=== PATIENT | female | born 2000 | race Caucasian/White ===

== ENCOUNTER 2019-11-03 07:33 | Inpatient (IN) | payer OTHER, SELFPAY ==
[2019-11-03] VITALS (130 sets, daily range): BP systolic 73–130; BP diastolic 20–95; PULSE 59–151; RESP 14; TEMP 36.3–36.9; O2SAT 95–100; BMI 22.4
--- NOTE | 2019-11-03 07:33 | LDADM ---
This patient, Dat Alvarado, was admitted to Labor/Delivery/Recovery 105 on 11/03/19 at 07:33. Plans for labor, pain management and were discussed with patient. Patient/family oriented to hospital policies and general routines including ID bracelet, bed and alarms, visiting hours, pain management, procedures, bathroom and other care routines, personal items, smoking policy, room service/diet and guest tray routines, infant security routines, and visiting hours. Patient/Family are encouraged to report perceived risks to care and to ask questions if they do not understand what they are told or what they should do. See OBIX for further documentation.
[2019-11-03] MEDS: ONDANSETRON INJ 4 MG/2 ML VIAL IV PUSH (07:56)
[2019-11-03] MEDS: LACTATED RINGERS 1,000 ML 125 ML IV CONT ×4 (07:58→16:24)
[2019-11-03] MEDS: OXYTOCIN 30 UNITS/NS 500 ML 30 UNITS/500 ML BAG IV CONT (07:59)
[2019-11-03 08:25] LABS: Basophils Percent Auto 0.3 % (0.2-1.2); Eosinophils Absolute Auto 0.1 K/mm3 (0-0.3); Eosinophils Percent Auto 0.5 % (0-4.4); Hematocrit 39.3 % (37.0-47.0); Hemoglobin 13.3 g/dL (12.0-15.0); Immature Granulocyte Absolute 0.04 K/mm3 (0.00-0.031); Immature Granulocyte Percent A 0.4 % (0-0.5); Lymphocytes Absolute Auto 1.82 K/mm3 (0.9-3.2); Mean Corpuscular HGB Conc 33.8 g/dl (32-36); Mean Corpuscular Hemoglobin 30.4 pg (26-34); Mean Corpuscular Volume 89.7 fl (80-100); Mean Platelet Volume 9.9 fl (7.4-10.4); Monocytes Absolute Auto 0.8 K/mm3 (0.1-0.6); Monocytes Percent Auto 9.1 % (2.6-8.5); Neutrophils Absolute Auto 6.4 K/mm3 (1.3-6.7); Neutrophils Percent Auto 69.7 % (45.5-73.1); Platelet Count Result 225 k/mm3 (150-375); Red Blood Count 4.38 M/mm3 (4.2-5.4); Red Cell Distribution Width 12.6 % (11.5-14.5); White Blood Count 9.1 K/mm3 (4.5-10.0)
--- NOTE | 2019-11-03 14:33 | WPDANESEPPF ---
Anes - Initial Pre Proc Eval Date/Time: 11/03/19 14:33 Surgeon: Stephan Smith MD Pre Op Diagnosis: Induction of Labor Patient Data Age: 19 Gender: F Height: 1.68 m Weight: 63 kg Last Vital Signs Temp 36.6 C 11/03/19 14:03 Pulse 75 11/03/19 14:31 BP 116/81 11/03/19 14:31 Pulse Ox 100 11/03/19 14:29 Allergies Allergy/AdvReac Type Severity Reaction Status Date / Time Sulfa (Sulfonamide Allergy Intermediate Rash, Verified 04/15/18 14:19 Antibiotics) swelling Home Medications Medication Instructions Recorded Confirmed Type sertraline 100 mg PO DAILY 11/03/19 11/03/19 History Laboratory Tests 11/03/19 11/03/19 11/03/19 07:58 07:58 07:58 WBC 9.1 K/mm3 K/mm3 (4.5-10.0) RBC 4.38 M/mm3 M/mm3 (4.2-5.4) Hgb 13.3 g/dL g/dL (12.0-15.0) Hct 39.3 % % (37.0-47.0) MCV 89.7 fl fl (80-100) MCH 30.4 pg pg (26-34) MCHC 33.8 g/dl g/dl (32-36) RDW 12.6 % % (11.5-14.5) Plt Count 225 k/mm3 k/mm3 (150-375) MPV 9.9 fl fl (7.4-10.4) Immature Gran % (Auto) 0.4 % % (0-0.5) Neut % (Auto) 69.7 % % (45.5-73.1) Lymph % (Auto) 20.0 % % (18.3-44.2) [place] % (Auto) 9.1 % H % (2.6-8.5) Eos % (Auto) 0.5 % % (0-4.4) Baso % (Auto) 0.3 % % (0.2-1.2) Lymph # (Auto) 1.82 K/mm3 K/mm3 (0.9-3.2) [place] # (Auto) 0.8 K/mm3 H K/mm3 (0.1-0.6) Eos # (Auto) 0.1 K/mm3 K/mm3 (0-0.3) Baso # (Auto) 0.0 K/mm3 K/mm3 (0.0-0.1) Abs Immat Gran (auto) 0.04 K/mm3 H K/mm3 (0.00-0.031) Absolute Neuts (auto) 6.4 K/mm3 K/mm3 (1.3-6.7) Absolute Nucleated RBC 0.0 K/mm3 K/mm3 (0.0-0.012) Nucleated RBC % 0.0 % % (0.0-0.2) RPR Pending Blood Type O Positive Antibody Screen Negative Patient hx anesthesia problems: none Family hx anesthesia problems: none [facility] Family History Family History (Updated 11/03/19 @ 08:19 by Yoselin Tovar RN) Grandparent Cancer Father Diabetes mellitus Social History Social History Smoking status: Former smoker Tobacco type: cigarettes Smoking end date: 03/01/19 Gender identity (if verbalized by the patient): Female Spiritual care concerns: No Anes - Eval Final PreProcedure Day of Procedure 11/03/19 14:33 Patient weight: normal Heart: regular rate and rhythm Lungs: clear to auscultation and normal air movement Airway: Mallampati scale class II Neurological: alert and oriented Last oral intake: >/= 8 hours ASA classification: II Emergent: no Anesthetic plan: proceed Anesthesia type and monitoring: regional epidural Informed Consent: The patient's anesthetic plan and its attendant risks and benefits were discussed with the patient/family/POA. Questions were solicited and answers provided to the satisfaction of the patient/family/POA.
--- NOTE | 2019-11-03 18:35 | WPDHPUPDATE1 ---
History and Physical Update Update Date/Time: 11/03/19 18:35 History and Physical has been reviewed, including an updated exam of the patient. There are NO changes in the patient's condition. Risks, benefits, and alternatives have been discussed and questions answered. Patient agrees to proceed with procedure.
--- NOTE | 2019-11-03 18:35 | WPDOBADMIT ---
Obstetrics - Admit Note Admission Note: record reviewed. No pertinent additions to the history and/or any subsequent changes in the physical findings that are not consistent with the expected course of the were found. Additions to the history and/or subsequent changes in the physical findings follow. None.
--- NOTE | 2019-11-03 18:35 | PM.OBPRVD ---
OB - Delivery Note Procedure Delivery date: 11/03/19 Route of delivery: Episiotomy description: None Laceration description: None Specimen: Yes (placenta (MSF)) Estimated blood loss (mL): 100 Anesthesia type: Epidural Disposition: floor Narrative: Patient prepped and draped in usual manner for this procedure. Maternal expulsive efforts delivered vertex. Nuchal cord was noted and reduced. Rest of baby was delivered without difficulty. Cord is clamped and cut was passed off the operative field. Placenta delivered spontaneously. Uterus was well contracted. Surgeon logistics solution manager vulva were inspected no lacerations or tears. This point seizure was considered terminated. [place] Baby Weeks of gestation at delivery: 39 Weight (pounds): 7 Weight (ounces): 0 presentation: vertex Placenta delivery description: Spontaneous cord vessel description: 3 Vessels score one minute: 7 score five minutes: 9
[2019-11-03] MEDS: OXYTOCIN 30 UNITS/NS 500 ML 30 UNITS/500 ML BAG 125 UNITS IV CONT (18:56)
[2019-11-03] MEDS: IBUPROFEN 600 MG TABLET PO (20:07)
[2019-11-03] MEDS: BENZOCAINE 20% AER SPR (*SP) 56 GM CAN 1 SPRAY TOPICAL (20:08)
[2019-11-03] MEDS: WITCH HAZEL 40 PADS 1 PAD TOPICAL (20:08)
[2019-11-04 05:37] LABS: Hematocrit 32.4 % (37.0-47.0); Hemoglobin 10.7 g/dL (12.0-15.0)
--- NOTE | 2019-11-04 06:57 | P.DS_ITS ---
OB - DS: Summary OB Procedures : None OB Procedures Intrapartum: Spontaneous Vag Delivery OB Procedures: : None Time Spent with Patient Time attestation: Total time spent providing and/or coordinating discharge services: DS: Data Data Completed and Pending Pending studies at discharge: Pending at discharge 11/03/19 18:28 Surgical [PTH] Routine Labs on day of discharge: Labs from last 24 hours 11/04/19 11/03/19 11/03/19 05:10 07:58 07:58 WBC RBC Hgb 10.7 L Hct 32.4 L MCV MCH MCHC RDW Plt Count MPV Immature Gran % (Auto) Neut % (Auto) Lymph % (Auto) [place] % (Auto) Eos % (Auto) Baso % (Auto) Lymph # (Auto) [place] # (Auto) Eos # (Auto) Baso # (Auto) Abs Immat Gran (auto) Absolute Neuts (auto) Absolute Nucleated RBC Nucleated RBC % RPR Pending Blood Type O Positive Antibody Screen Negative 11/03/19 07:58 WBC 9.1 RBC 4.38 Hgb 13.3 Hct 39.3 MCV 89.7 MCH 30.4 MCHC 33.8 RDW 12.6 Plt Count 225 MPV 9.9 Immature Gran % (Auto) 0.4 Neut % (Auto) 69.7 Lymph % (Auto) 20.0 [place] % (Auto) 9.1 H Eos % (Auto) 0.5 Baso % (Auto) 0.3 Lymph # (Auto) 1.82 [place] # (Auto) 0.8 H Eos # (Auto) 0.1 Baso # (Auto) 0.0 Abs Immat Gran (auto) 0.04 H Absolute Neuts (auto) 6.4 Absolute Nucleated RBC 0.0 Nucleated RBC % 0.0 RPR Blood Type Antibody Screen Discharge Plan Discharge Discharging Clinician: Stephan Smith Patient Disposition: Home, Self-Care Activity: as tolerated Diet: as tolerated Patient Instructions: Antibiotic Form Stand Alone Forms: General Discharge Information Follow-up/Referrals: Stephan Smith MD [Physician] - 3 Weeks Discharge Medications: New hydrocodone-acetaminophen 5-325 mg Tablet 1 tab PO Q3H PRN (Reason: Moderate Pain (4-6)) Qty: 12 RF: 0 ibuprofen 600 mg Tablet 600 mg PO Q6H PRN (Reason: Cramping) Qty: 30 RF: 0 Continued sertraline 100 mg tablet 100 mg PO DAILY RF: 0 Date of admission: 11/03/19 07:33 Primary Care Provider: UNKNOWN,DOCTOR Admitting Provider: Stephan Smith Attending physician on admission: Stephan Smith
[2019-11-04] MEDS: SERTRALINE HCL 50 MG TABLET 100 MG PO (08:54)
[2019-11-04] MEDS: MULTIVIT/MIN/PREN/FOL AC/IRON TABLET 1 TAB PO (08:54)
[2019-11-04] MEDS: IBUPROFEN 600 MG TABLET PO ×2 (08:54→17:20)
[2019-11-04 08:58] VITALS: BP 112/79; PULSE 66; RESP 18; TEMP 36.5
--- NOTE | 2019-11-04 13:58 | WPDANLDPN2 ---
Anes-Prog Note L&D Date/Time: 11/04/19 13:58 Comfortable throughout: labor and delivery Neuraxial method: epidural Epidural/Spinal procedure site: clean & non-tender Neuro status: Neuro function grossly intact. Cardiovascular status: normal Respiratory status: normal Airway patency: baseline Mental status: baseline Post-Op hydration status: normal Vital Signs: Last Vital Signs Temp 97.7 F 11/04/19 08:58 Pulse 66 11/04/19 08:58 Resp 18 11/04/19 08:58 BP 112/79 11/04/19 08:58 Pulse Ox 98 11/03/19 20:35 I/O: Intake & Output 11/03/19 11/04/19 11/04/19 23:59 07:59 15:59 Intake Total 2500 Output Total 150 Balance 2350 Patient feedback: Patient satisfied with anesthetic care.
[2019-11-04] MEDS: DOCUSATE SODIUM 100 MG CAPSULE PO (17:20)
--- NOTE | 2019-11-04 20:10 | PC.NURSE ---
Patient viewed the discharge video Mother & Baby Care, The First Two Weeks . Patient was given the opportunity and encouraged to ask questions. Patient verbalized understanding of information shared and has been given the mother/baby guide for home reference.
[2019-11-06 08:03] LABS: Rapid Plasma Reagin Non-Reactive (NonReactive)
== END 2019-11-04 21:07 | disposition home or self-care (01) | DRG 560 ==
LOC: ANHLDR 07:42 → ANHOB2 20:32
PROVIDERS: Admitting Provider Obstetrics & Gynecology; Visit Provider Obstetrics & Gynecology
DX: O69.81X0 Labor and delivery complicated by cord around neck, without compression, not applicable or unspecified (principal); Z3A.39 39 weeks gestation of pregnancy; Z37.0 Single live birth; Z23 Encounter for immunization; Z87.891 Personal history of nicotine dependence
CPT/HCPCS: 36415; 85014; 85018; 85025; 86592; 86850; 86900; 86901; 88307; A9270; J2405; J2590; J2795; J7120

== ENCOUNTER 2022-02-20 06:03 | Inpatient (IN) | payer OTHER, SELFPAY ==
[2022-02-20] VITALS (148 sets, daily range): BP systolic 85–127; BP diastolic 35–103; PULSE 57–102; RESP 16–18; TEMP 36.2–36.9; O2SAT 97–100; BMI 23.8
--- OUTSIDE RECORDS SUMMARY | 2022-02-20 06:12 | XMS_ITS ---
:2000 Author Care Team Providers Name Role Phone Stephan Smith Primary Care Provider Unavailable Allergies Code Code System Name Reaction Severity Status Onset Sulfa (Sulfonamide Antibiotics) ? ? Active ? Medications Name Status Start Date Stop Date ? ? folic acid 1 mg tablet Completed ? 0 Lice Killing 0.33 %-4 % shampoo Active ? Not available nifedipine ER 30 mg tablet,extended release 24 hr Completed ? 10/31/2019 progesterone micronized 200 mg capsule Completed ? 10/31/2019 sertraline 100 mg tablet Active ? Not gayathri ilable Notes: iron Problems Name Status Onset Date Source ? Unknown 10/25/2019 ? Procedures Notes: dental Results Lab Results None recorded. Past Encounters None recorded. Social History Tobacco Smoking Status Former Smoker Notes: quit age 16 Vaccine List None recorded. Plan of Care Reminders Provider Appointments None recorded. ? ? Lab None recorded. ? ? Referral None recorded. ? ? Procedures None recorded. ? ? Surgeries None recorded. ? ? Imaging None recorded. ? ? Vitals Weight Blood Pressure 138 lbs 104/58 mm[Hg]
--- OUTSIDE RECORDS SUMMARY | 2022-02-20 06:12 | XMS_ITS | Encounter Summary ---
:1999 Author Care Team Providers Name Role Phone Barbara Denise MD Primary Care Provider [phone] Reason for Visit OB visit Assessment and Plan Assessment Note Patient is ___weeks . Discussed plan. 1. Routine care Discussion Note: None recorded.Patient educational handouts: No information available. Plan of Care Reminders Provider Appointments None recorded. ? ? Lab None recorded. ? ? Referral None recorded. ? ? Procedures None recorded. ? ? Surgeries None recorded. ? ? Imaging None recorded. ? ? Medications Name Start Date ? ? bucoyelpza-lvzrjootpeamb-vzghkuwe 50 mg-300 mg-40 mg c apsule ? TAKE 1 CAPSULE BY MOUTH EVERY 4 HOURS calcium carbonate 600 mg-vitamin D3 10 mcg (400 unit) tablet ? TAKE 1 TABLET BY MOUTH DAILY FC2 Female Condom ? levonorgestrel 1.5 mg tablet ? norethindrone (contraceptive) 0.35 mg tablet ? Gummies ? Medications Administered None recorded. Vitals Height Weight BMI Blood Pressure 5 ft 6.25 in 146 lbs 23.4 kg/m2 100/69 mm[Hg] Results Lab Results None recorded. Allergies Code Code System Name Reaction Severity Onset Sulfa (Sulfonamide Antibiotics) Anaphylaxis ? ? Problems Name Status Onset Date Source ? Active 09/01/2021 ? Migraine with Aura Active 11/13/2021 ? Procedures Date Name Performed by ? 01/09/2022 US, Obstetric, Follow-up [place]
--- OUTSIDE RECORDS SUMMARY | 2022-02-20 06:12 | XMS_ITS ---
:1999 Author Care Team Providers Name Role Phone MARCY CUNNINGHAM MD Primary Care Provider [phone] Allergies Code Code System Name Reaction Severity Status Onset Sulfa (Sulfonamide Anaphylaxis ? Active ? Antibiotics) Medications Name Status Start Date Stop Date ? ? amoxicillin 500 mg tablet Completed 04/01/20182021 take 1 tablet by oral route every 8 hours bupropion HCl XL 150 mg 24 hr tablet, extended release Completed ? 12/03/2021 TAKE 1 TABLET BY MOUTH EVERY DAY nywvvxirly-puwpedagxqhqz-vesescen 50 mg-300 mg-40 mg capsule Act devin ? Not available TAKE 1 CAPSULE BY MOUTH EVERY 4 HOURS calcium carbonate 600 mg-vitamin D3 10 mcg (400 unit) tablet Act devin ? Not available TAKE 1 TABLET BY MOUTH DAILY cephalexin 500 mg capsule Completed 12/07/20172021 take 1 capsule by oral route every 12 hours escitalopram 10 mg tablet Completed ? 2021 TAKE 1 TABLET BY MOUTH EVERY DAY escitalopram 20 mg tablet Completed ? 2021 TAKE 1 TABLET BY MOUTH EVERY DAY IN THE MORNING FC2 Female Condom Active ? Not available levonorgestrel 1.5 mg tablet Active ? Not available norethindrone (contraceptive) 0.35 mg tablet Active ? Not available Gummies Active ? Not available Xulane 150 mcg-35 mcg/24 hr transdermal patch Completed ? 09/01/2021 APPLY 1 PATCH TOPICALLY TO THE SKIN EVERY WEEK FOR 21 DAYS Problems Name Status Onset Date Source ? Detection Examination Unknown 11/16/[address] Concept Unknown 11/16/2017 History Screening for Malformation Unknown 11/26/2017 Histo
--- OUTSIDE RECORDS SUMMARY | 2022-02-20 06:12 | XMS_ITS | Encounter Summary ---
:1999 Author Care Team Providers Name Role Phone Barbara Denise MD Primary Care Provider [phone] Reason for Visit None recorded. Assessment and Plan 1. Placenta circumvallata ? US, obstetric, follow-up Discussion Note: None recorded.Patient educational handouts: No information available. Plan of Care Reminders Provider Appointments None recorded. ? ? Lab None recorded. ? ? Referral None recorded. ? ? Procedures None recorded. ? ? Surgeries None recorded. ? ? Imaging US, Obstetric, Follow-up 02/03/2022 Juan M newell Medications Name Start Date ? ? agipptwegl-hexrwkreurztr-ggjmtwnw 50 mg-300 mg-40 mg c apsule ? TAKE 1 CAPSULE BY MOUTH EVERY 4 HOURS calcium carbonate 600 mg-vitamin D3 10 mcg (400 unit) tablet ? TAKE 1 TABLET BY MOUTH DAILY FC2 Female Condom ? levonorgestrel 1.5 mg tablet ? norethindrone (contraceptive) 0.35 mg tablet ? Gummies ? Medications Administered None recorded. Vitals None recorded. Results Lab Results None recorded. Allergies Code Code System Name Reaction Severity Onset Sulfa (Sulfonamide Antibiotics) Anaphylaxis ? ? Problems Name Status Onset Date Source ? Active 09/01/2021 ? Migraine with Aura Active 11/13/2021 ? Procedures Date Name Performed by ? 01/09/2022 US, Obstetric, Follow-up [place] [address] [place] [address] ([address])
--- OUTSIDE RECORDS SUMMARY | 2022-02-20 06:12 | XMS_ITS | Encounter Summary ---
:1999 Author Care Team Providers Name Role Phone Barbara Denise MD Primary Care Provider [phone] Reason for Visit OB visit Assessment and [...] ? Medications Name Start Date ? ? qqiwcyphmc-fnejbkzvirncw-fflcyqkc 50 mg-300 mg-40 mg c apsule ? TAKE 1 CAPSULE BY MOUTH EVERY 4 HOURS calcium carbonate 600 mg-vitamin D3 10 mcg (400 unit) tablet ? TAKE 1 TABLET BY MOUTH DAILY FC2 Female Condom ? levonorgestrel 1.5 mg tablet ? norethindrone (contraceptive) 0.35 mg tablet ? Gummies ? Medications Administered None recorded. Vitals Height Weight BMI Blood Pressure 5 ft 6.25 in 149 lbs 23.9 kg/m2 103/66 mm[Hg] Results Lab Results None recorded. Allergies Code Code System Name Reaction Severity Onset Sulfa (Sulfonamide Antibiotics) Anaphylaxis ? ? Problems Name Status Onset Date Source ? Active 09/01/2021 ? Migraine with Aura Active 11/13/2021 ? Procedures Date Name Performed by ? 01/09/2022 US, Obstetric, Follow-up [place]
--- OUTSIDE RECORDS SUMMARY | 2022-02-20 06:12 | XMS_ITS | Encounter Summary ---
:1999 Author Care Team Providers Name Role Phone Barbara Denise MD Primary Care Provider [phone] Reason for Visit OB visit Assessment and [...] ? Medications Name Start Date ? ? tpxzflfepb-zbcxmqkxvdkuc-uktqihag 50 mg-300 mg-40 mg c apsule ? [...] ft 6.25 in 149 lbs 23.9 kg/m2 107/67 mm[Hg] Results Lab Results None recorded. Allergies Code Code System Name Reaction Severity Onset Sulfa (Sulfonamide Antibiotics) Anaphylaxis ? ? Problems Name Status Onset Date Source ? Active 09/01/2021 ? Migraine with Aura Active 11/13/2021 ? Procedures Date Name Performed by ? 01/09/2022 US, Obstetric, Follow-up [place]
--- OUTSIDE RECORDS SUMMARY | 2022-02-20 06:12 | XMS_ITS | Encounter Summary ---
:1999 Author Care Team Providers Name Role Phone Barbara Denise MD Primary Care Provider [phone] Reason for Visit OB visit Assessment and Plan 1. Routine care Discussion Note: None recorded.Patient educational handouts: No information available. Plan of Care Reminders Provider Appointments None recorded. ? ? Lab None recorded. ? ? Referral None recorded. ? ? Procedures None recorded. ? ? Surgeries None recorded. ? ? Imaging None recorded. ? ? Medications Name Start Date ? ? nyzrozsbke-kmaaivmrnjvwb-qtqcqiex 50 mg-300 mg-40 mg c apsule ? [...] ft 6.25 in 146 lbs 23.4 kg/m2 104/68 mm[Hg] Results Lab Results None recorded. Allergies Code Code System Name Reaction Severity Onset Sulfa (Sulfonamide Antibiotics) Anaphylaxis ? ? Problems Name Status Onset Date Source ? Active 09/01/2021 ? Migraine with Aura Active 11/13/2021 ? Procedures Date Name Performed by ? 01/09/2022 US, Obstetric, Follow-up [place] [address] [place] [address]
--- OUTSIDE RECORDS SUMMARY | 2022-02-20 06:12 | XMS_ITS | Encounter Summary ---
:1999 Author Care Team Providers Name Role Phone Barbara Denise MD Primary Care Provider [phone] Reason for Visit OB visit OB [id number] EDC 02/27/2022 LMP 05/24/2021 Assessment and Plan Assessment Note Patient is __37_weeks . Discuss ed plan. 1. Routine care Discussion Note: None recorded.Patient educational handouts: No information available. Plan of Care Reminders Provider Appointments None recorded. ? ? Lab None recorded. ? ? Referral None recorded. ? ? Procedures None recorded. ? ? Surgeries None recorded. ? ? Imaging None recorded. ? ? Medications Name Start Date ? ? aclnuhqpbm-axgotxxzkcwdc-xltbhpis 50 mg-300 mg-40 mg c apsule ? [...] ft 6.25 in 146 lbs 23.4 kg/m2 95/61 mm[Hg] Results Lab Results None recorded. Allergies Code Code System Name Reaction Severity Onset Sulfa (Sulfonamide Antibiotics) Anaphylaxis ? ? Problems Name Status Onset Date Source ? Active 09/01/2021 ? Migraine with Aura Active 11/13/2021 ? Procedures Date Name Performed by ? 02/03/2022 US, Obstetric
--- OUTSIDE RECORDS SUMMARY | 2022-02-20 06:13 | XMS_ITS | Encounter Summary ---
:1999 Author Care Team Providers Name Role Phone Barbara Denise MD Primary Care Provider [phone] Reason for Visit OB visit Assessment and Plan Assessment Note Patient is ___weeks . Discussed plan. 1. Stress reaction with psychomotor jack tation Discussion Note: None recorded.Patient educational handouts: No information available. Plan of Care Reminders Provider Appointments None recorded. ? ? Lab None recorded. ? ? Referral None recorded. ? ? Procedures None recorded. ? ? Surgeries None recorded. ? ? Imaging None recorded. ? ? Medications Name Start Date ? ? djprkxqpfc-ihphbowaxhwok-zpcljekb 50 mg-300 mg-40 mg c apsule ? [...] ft 6.25 in 146 lbs 23.4 kg/m2 103/66 mm[Hg] Results Lab Results None recorded. Allergies Code Code System Name Reaction Severity Onset Sulfa (Sulfonamide Antibiotics) Anaphylaxis ? ? Problems Name Status Onset Date Source ? Active 09/01/2021 ? Migraine with Aura Active 11/13/2021 ? Procedures Date Name Performed by ? 12/03/2021 US, Obstetric, Follow-up [place]
--- OUTSIDE RECORDS SUMMARY | 2022-02-20 06:13 | XMS_ITS | Encounter Summary ---
:1999 Author Care Team Providers Name Role Phone Barbara Denise MD Primary Care Provider [phone] Reason for Visit None recorded. Assessment and Plan 1. Placenta circumvallata ? US, obstetric, follow-up Discussion Note: None recorded.Patient educational handouts: No information available. Plan of Care Reminders Provider Appointments None recorded. ? ? Lab None recorded. ? ? Referral None recorded. ? ? Procedures None recorded. ? ? Surgeries None recorded. ? ? Imaging US, Obstetric, Follow-up 12/03/2021 Juan M newell Medications Name Start Date ? ? clzacqsule-mzdrkbaxkotgv-mscfnrdt 50 mg-300 mg-40 mg c apsule ? [...] ? Procedures Date Name Performed by ? 11/13/2021 US, Obstetric, Follow-up [place] [address] [place] [address] ([address])
--- OUTSIDE RECORDS SUMMARY | 2022-02-20 06:13 | XMS_ITS | Encounter Summary ---
:1999 Author Care Team Providers Name Role Phone Barbara Denise MD Primary Care Provider [phone] Reason for Visit OB visit Assessment and Plan 1. Routine care 2. Placenta circumvallata Discussion Note: None recorded.Patient educational handouts: No information available. Plan of Care Reminders Provider Appointments None recorded. ? ? Lab None recorded. ? ? Referral None recorded. ? ? Procedures None recorded. ? ? Surgeries None recorded. ? ? Imaging None recorded. ? ? Medications Name Start Date ? ? bfwoenapyr-hxonvxgifbexr-mccocdbk 50 mg-300 mg-40 mg c apsule ? [...] ft 6.25 in 146 lbs 23.4 kg/m2 101/66 mm[Hg] Results Lab Results None recorded. Allergies Code Code System Name Reaction Severity Onset Sulfa (Sulfonamide Antibiotics) Anaphylaxis ? ? Problems Name Status Onset Date Source ? Active 09/01/2021 ? Migraine with Aura Active 11/13/2021 ? Procedures Date Name Performed by ? 11/13/2021 US, Obstetric, Follow-up [place] [address]
--- OUTSIDE RECORDS SUMMARY | 2022-02-20 06:13 | XMS_ITS ---
:1999 Author Care Team Providers Name Role Phone Maxime Emery Primary Care Provider Unavailable Allergies Code Code System Name Reaction Severity Status Onset Sulfa (Sulfonamide Respiratory Distress Fatal Active ? Antibiotics) Medications Name Status Start Date Stop Date ? ? aspirin 81 mg tablet,delayed release Completed ? 10/24/2019 Take 2 tablets every day by oral route. bupropion HCl XL 150 mg 24 hr tablet, extended release Active ? Not available TAKE 1 TABLET BY MOUTH EVERY DAY Calcium 600 with Vitamin D3 600 mg-10 mcg (400 unit) capsule Com pleted ? 10/24/2019 Take 1 capsule twice a day by oral route. calcium carbonate 600 mg-vitamin D3 10 mcg (400 unit) tablet Act devin ? Not available Take 1 tablet twice a day by oral route. cyanocobalamin (vit B-12) 1,000 mcg/mL injection solution Comple [place]ie ? 03/19/2020 Inject 1 mL every month by subcutaneous route. escitalopram 10 mg tablet Active ? Not av ailable TAKE 1 TABLET BY MOUTH EVERY DAY escitalopram 20 mg tablet Active ? Not av ailable TAKE 1 TABLET BY MOUTH EVERY DAY IN THE MORNING FC2 Female Condom Active ? Not available folic acid 1 mg tablet Completed ? 0 iron Completed ? 03/19/2020 levonorgestrel 1.5 mg tablet Active ? Not available Lice Killing 0.33 %-4 % shampoo Completed ? 10/24/2019 Lice Treatment (permethrin) 1 % topical liquid Completed ? 10/24/2019 APPLY A SUFFICIENT AMOUNT OF SHAMPOO BY TOPICAL ROUTE ONCE ALLOW TO REMAIN ON HAIR FOR 10 MINUTES BEFORE RINSING OFF WITH WATER multivitamin tablet Active ? Not availabl e Take 1 tablet every day by o
--- OUTSIDE RECORDS SUMMARY | 2022-02-20 06:13 | XMS_ITS | Encounter Summary ---
:1999 Author Care Team Providers Name Role Phone Barbara Denise MD Primary Care Provider [phone] Reason for Visit None recorded. Assessment and Plan 1. Placenta circumvallata ? US, obstetric, follow-up Discussion Note: None recorded.Patient educational handouts: No information available. Plan of Care Reminders Provider Appointments None recorded. ? ? Lab None recorded. ? ? Referral None recorded. ? ? Procedures None recorded. ? ? Surgeries None recorded. ? ? Imaging US, Obstetric, Follow-up 01/09/2022 Juan M newell Medications Name Start Date ? ? yqdhintshg-mncgapgekzjuz-cpbqhyqf 50 mg-300 mg-40 mg c apsule ? [...] Performed by ? 01/09/2022 US, Obstetric, Follow-up [place] [address] [place] [address] ([address]) [place]
--- NOTE | 2022-02-20 07:17 | P.PNAN_ITS ---
Anes - Eval Pre Procedure Procedure: Labor epidural Date/Time: 02/20/22 07:17 Surgeon: carolin Pre Op Diagnosis: Induction of Labor Patient Data Age: 22 Gender: F Height: Weight: Last Vital Signs Pulse 95 02/20/22 06:45 BP 99/69 L 02/20/22 06:45 Allergies Allergy/AdvReac Type Severity Reaction Status Date / Time Sulfa (Sulfonamide Allergy Intermediate Rash, Verified 04/15/18 14:19 Antibiotics) swelling Home Medications Medication Instructions Recorded Confirmed Type escitalopram oxalate 10 mg tablet 10 mg PO DAILY 02/20/22 02/20/22 History vit no.95-ferrous 1 tablet PO DAILY 02/20/22 02/20/22 History fumarate 28 mg-folic acid 800 mcg tablet () Patient hx anesthesia problems: none Family hx anesthesia problems: none Results Review: All pre-operative results and documents have been reviewed as part of the pre- operative evaluation. PMFSH Past Medical History Medical History Anxiety and depression Family History Family History Grandparent Cancer Father Diabetes mellitus Social History Social History Smoking status: Former smoker Tobacco type: cigarettes Smoking end date: 03/01/19 Gender identity (if verbalized by the patient): Female Spiritual care concerns: No Exam Day of Procedure 02/20/22 07:17 Patient weight: overweight Heart: regular rate and rhythm Lungs: clear to auscultation Airway: Mallampati scale and special considerations poor dentition Neurological: alert and oriented
--- NOTE | 2022-02-20 07:22 | LDADM ---
This patient, Dat Alvarado, was admitted to Labor/Delivery/Recovery 104 on 02/20/22 at 06:03. Plans for labor, pain management and were discussed with patient. Patient/family oriented to hospital policies and general routines including ID bracelet, bed and alarms, visiting hours, pain management, procedures, bathroom and other care routines, personal items, smoking policy, room service/diet and guest tray routines, security routines, and visiting hours. Patient/Family are encouraged to report perceived risks to care and to ask questions if they do not understand what they are told or what they should do. See OBIX for further documentation.
[2022-02-20 07:32] LABS: Basophils Percent Auto 0.3 % (0.2-1.2); Eosinophils Absolute Auto 0.1 K/mm3 (0-0.3); Eosinophils Percent Auto 0.9 % (0-4.4); Hematocrit 28.8 % (37.0-47.0); Hemoglobin 9.3 g/dL (12.0-15.0); Immature Granulocyte Absolute 0.07 K/mm3 (0.00-0.031); Immature Granulocyte Percent A 0.7 % (0-0.5); Lymphocytes Absolute Auto 1.81 K/mm3 (0.9-3.2); Lymphocytes Percent Auto 19.1 % (18.3-44.2); Mean Corpuscular HGB Conc 32.3 g/dl (32-36); Mean Corpuscular Hemoglobin 26.3 pg (26-34); Mean Corpuscular Volume 81.6 fl (80-100); Mean Platelet Volume 9.6 fl (7.4-10.4); Monocytes Absolute Auto 1.2 K/mm3 (0.1-0.6); Monocytes Percent Auto 12.6 % (2.6-8.5); Neutrophils Absolute Auto 6.3 K/mm3 (1.3-6.7); Neutrophils Percent Auto 66.4 % (45.5-73.1); Platelet Count Result 206 k/mm3 (150-375); Red Blood Count 3.53 M/mm3 (4.2-5.4); Red Cell Distribution Width 13.9 % (11.5-14.5); White Blood Count 9.5 K/mm3 (4.5-10.0)
[2022-02-20] MEDS: LACTATED RINGERS 1,000 ML 125 ML IV CONT ×2 (07:35→11:22)
[2022-02-20] MEDS: OXYTOCIN 30 UNITS/NS 500 ML 30 UNITS/500 ML BAG IV CONT (07:50)
--- NOTE | 2022-02-20 08:10 | WPDHPUPDATE1 ---
History and Physical Update Update Date/Time: 02/20/22 08:10This patient is a 19-year-old multiparous female at 39 weeks gestation presents for elective induction of labor. Artificial rupture of membranes was performed. Clear fluid. 3 cm /80%/ and -2. External monitoring, epidural, as needed, expectant management, reassuring heart tones. History and Physical has been reviewed, including an updated exam of the patient. There are NO changes in the patient's condition. Risks, benefits, and alternatives have been discussed and questions answered. Patient agrees to proceed with procedure.
[2022-02-20 08:19] LABS: HIV 1/2 Ab P24 Ag Result Negative (Negative)
[2022-02-20 08:40] LABS: Rapid Plasma Reagin Non-Reactive (NonReactive)
[2022-02-20] MEDS: ONDANSETRON INJ 4 MG/2 ML VIAL IV PUSH (14:36)
--- NOTE | 2022-02-20 15:13 | P.PCNOB_ITS ---
OB - Delivery Note Procedure Procedure: Induction method: AROM and Per Pitocin Protocol Delivery monitor: External FHT and Internal Uterine Route of delivery: Episiotomy description: None Laceration Description: None Quantitative Blood Loss (ml): 90 Anesthesia type: Epidural [place] Baby Date of : 02/20/22 Time of : 15:01 Weeks of gestation at delivery: 39 Weight (pounds): 7 Weight (ounces): 1 score one minute: 8 score five minutes: 9
[2022-02-20] MEDS: OXYTOCIN 30 UNITS/NS 500 ML 30 UNITS/500 ML BAG 125 UNITS IV CONT (15:47)
--- NOTE | 2022-02-20 17:40 | OBPPTRN ---
Patient transferred to post room #277 via wheelchair. Support person present. Oriented to unit, room, information board, rooming in, admission packet and security measures. Patient verbalizes understanding.
[2022-02-20] MEDS: POLYSACCHARIDE IRON COMPLEX 150 MG CAPSULE PO (20:07)
[2022-02-20] MEDS: IBUPROFEN 600 MG TABLET PO (23:34)
[2022-02-21 04:30] VITALS: BP 102/65; PULSE 62; RESP 16; TEMP 36.6
[2022-02-21] MEDS: ACETAMINOPHEN 325 MG TABLET 650 MG PO (04:34)
[2022-02-21 05:18] LABS: Hematocrit 29.7 % (37.0-47.0); Hemoglobin 9.5 g/dL (12.0-15.0)
[2022-02-21] MEDS: POLYSACCHARIDE IRON COMPLEX 150 MG CAPSULE PO (08:05)
[2022-02-21] MEDS: MULTIVIT/MIN/PREN/FOL AC/IRON TABLET 1 TAB PO (08:05)
[2022-02-21] MEDS: IBUPROFEN 600 MG TABLET PO ×2 (08:06→15:19)
[2022-02-21] MEDS: LANOLIN (LANSINOH) 7.5 GM CREAM 1 APPLIC TOPICAL (08:08)
[2022-02-21] MEDS: ESCITALOPRAM OXALATE 10 MG TABLET PO (09:00)
[2022-02-21 10:30] VITALS: BP 106/59; PULSE 63; RESP 18; TEMP 36.3; O2SAT 100
[2022-02-21 13:00] VITALS: BP 105/63; PULSE 75; RESP 16; TEMP 36.1; O2SAT 100
--- NOTE | 2022-02-21 13:51 | P.PNOB_ITS ---
OB - PN: Subj Subjective Date/time seen: 02/21/22 13:51 Patient comments: no complaints, pain well controlled, incisional pain, tolerating diet and flatus present OB - PN: Obj Data Labs CBC & Chem 7: 02/21/22 04:27 Labs: Laboratory Results - last 24 hr 02/21/22 04:27 Hgb 9.5 L Hct 29.7 L OB - PN A/P Plan day: 1 Plan: routine care Comments: No problems, routine care, to DC Time Spent With Patient Time: Total time spent is greater than 50% in coordination of care (as documented) at patient's floor/unit and/or counseling patient: Exam Const: General: comfortable, no acute distress and alert Resp: Effort & Inspection: normal respiratory effort Auscultation: no c rackles, no rales and no rhonchi Cardio: Rate: regular rate Heart sounds: no click, no murmurs and no rubs GI: Inspection: non-distended GI Palp: No Tenderness to palpation present (GI) Auscultation: normal bowel sounds Other: Incision - CDI Extrem: General: normal to inspection, no pedal edema and no calf tenderness
--- NOTE | 2022-02-21 13:53 | PM.OBDSVD ---
DS: Admitting Diagnosis Discharge Date 02/21/22 Admitting Diagnosis term DS: Discharge Diagnosis Discharge Diagnosis (1) Term delivered: Code(s): O80 - Encounter for full-term uncomplicated delivery Status: Acute OB - DS: Summary OB Procedures : None OB Procedures Intrapartum: Spontaneous Vag Delivery OB Procedures: : None Time Spent with Patient Time attestation: Total time spent providing and/or coordinating discharge services: DS: Data Data Completed and Pending Labs on day of discharge: Labs from last 24 hours 02/21/22 04:27 Hgb 9.5 L Hct 29.7 L Discharge Plan Discharge Discharging Clinician: Srinivasa Evans Patient Disposition: Home, Self-Care Activity: pelvic rest Diet: regular Patient Instructions: Antibiotic Form Stand Alone Forms: General Discharge Information Follow-up/Referrals: Srinivasa Evans MD [Physician] - Discharge Medications: Continued PNV cmb#95-ferrous fumarate-FA [] 28 mg iron- 800 mcg Tablet 1 tablet PO DAILY escitalopram oxalate 10 mg Tablet 10 mg PO DAILY Date of admission: 02/20/22 06:03 Primary Care Provider: UNKNOWN,DOCTOR Admitting Provider: Srinivasa Evans Attending physician on admission: Srinivasa Evans Condition: Stable
== END 2022-02-21 16:20 | disposition home or self-care (01) | DRG 560 ==
LOC: ANHLDR 06:10 → ANHOB2 17:58
PROVIDERS: Admitting Provider Obstetrics & Gynecology; Visit Provider Obstetrics & Gynecology
DX: O99.344 Other mental disorders complicating childbirth (principal); Z37.0 Single live birth; Z3A.39 39 weeks gestation of pregnancy; F41.9 Anxiety disorder, unspecified; F32.A Depression, unspecified; O36.8330 Maternal care for abnormalities of the fetal heart rate or rhythm, third trimester, not applicable or unspecified
CPT/HCPCS: 36415; 85014; 85018; 85025; 86592; 86703; 86850; 86900; 86901; A9270; G0432; J2405; J2590; J2795; J7120

== ENCOUNTER 2022-02-24 21:27 | Emergency (ER) | payer OTHER, SELFPAY ==
[2022-02-24 21:34] VITALS: BP 128/82; PULSE 94; RESP 18; TEMP 36.7; O2SAT 100
[2022-02-24 22:21] LABS: Basophils Percent Auto 0.3 % (0.2-1.2); Eosinophils Absolute Auto 0.3 K/mm3 (0-0.3); Eosinophils Percent Auto 1.7 % (0-4.4); Hematocrit 36.3 % (37.0-47.0); Hemoglobin 11.1 g/dL (12.0-15.0); Immature Granulocyte Absolute 0.08 K/mm3 (0.00-0.031); Immature Granulocyte Percent A 0.5 % (0-0.5); Lymphocytes Absolute Auto 1.78 K/mm3 (0.9-3.2); Lymphocytes Percent Auto 11.6 % (18.3-44.2); Mean Corpuscular HGB Conc 30.6 g/dl (32-36); Mean Corpuscular Hemoglobin 25.5 pg (26-34); Mean Corpuscular Volume 83.4 fl (80-100); Mean Platelet Volume 8.9 fl (7.4-10.4); Monocytes Absolute Auto 1.3 K/mm3 (0.1-0.6); Monocytes Percent Auto 8.1 % (2.6-8.5); Neutrophils Percent Auto 77.8 % (45.5-73.1); Platelet Count Result 300 k/mm3 (150-375); Red Blood Count 4.35 M/mm3 (4.2-5.4); Red Cell Distribution Width 14.2 % (11.5-14.5); White Blood Count 15.4 K/mm3 (4.5-10.0)
[2022-02-24 22:33] LABS: Alanine Aminotransferase 17 U/L (6-35); Alkaline Phosphatase 150 U/L (38-126); Anion Gap 11 mmol/L (8-16); Aspartate Amino Transferase 34 U/L (14-36); Bilirubin,Total 0.3 mg/dL (0.2-1.3); Blood Urea Nitrogen 8 mg/dL (7-17); Calcium 8.6 mg/dL (8.4-10.2); Carbon Dioxide 25 mmol/L (22-30); Chloride 105 mmol/L (98-107); Estimated CRCL calculation 116 ml/min; Estimated Glomerular Filt Rate > 60; Glucose 103 mg/dL (65-110); Potassium 3.7 mmol/L (3.4-5.0); Sodium 141 mmol/L (137-145)
[2022-02-24 22:36] LABS: Prothrombin Time 12.5 Seconds (11.1-14.7)
[2022-02-24 22:37] LABS: Partial Thromboplastin Time 35.6 SECONDS (22.3-36.8)
--- NOTE | 2022-02-24 22:55 | ED.FEMALEGU ---
HPI - Female Genitourinary General Chief complaint: Vaginal Bleeding Stated complaint: vaginal bleeding Time Seen by Provider: 02/24/22 21:53 Source: patient Mode of arrival: ambulatory Limitations: no limitations History of Present Illness HPI Narrative: This is a 22 year old female that presents to the ER for abnormal uterine bleeding. Reports she gave 4 days ago. Reports they had trouble delivering her placenta and it had to be manually removed. Reports she passed what she thought was maybe part of the placenta which prompted her to be seen. Her OB is Dr. Evans. Reports pelvic cramping, especially with breast feeding. Denies fever or vomiting. Related Data Home Medications Medication Instructions Recorded Confirmed escitalopram oxalate 10 mg tablet 10 mg PO DAILY 02/20/22 02/20/22 vit no.95-ferrous 1 tablet PO DAILY 02/20/22 02/20/22 fumarate 28 mg-folic acid 800 mcg tablet () Allergies Allergy/AdvReac Type Severity Reaction Status Date / Time Sulfa (Sulfonamide Allergy Intermediate Rash, Verified 04/15/18 14:19 Antibiotics) swelling Review of Systems Review of Systems: CONSTITUTIONAL: Denies fever GASTROINTESTINAL: Denies nausea, vomiting All systems reviewed & are unremarkable except as noted in HPI and below PMFSH Past Medical History Medical History Anxiety and depression Family History Family History Grandparent Cancer Father Diabetes mellitus Social History Social History Smoking status: Former smoker Tobacco type: cigarettes Second hand tobacco smoke exposure: Yes (SO smokes) Smoking end date: 03/01/19 Substance use: never Gender identity (if verbalized by the patient): Female Spiritual care concerns: No Exam Narrative: GENERAL: Well-appearing, well-nourished, and in no acute distress. HEAD: Normocephalic, atraumatic. EYES: EOMI. CHEST: Clear to auscultation. No respiratory distress. No wheezes rales or rhonchi HEART: Regular rate and rhythm. No murmur heard. Normal peripheral pulses. ABDOMEN: Soft, nontender, nondistended, normal active bowel sounds. EXTREMITIES: Normal range of motion. No edema. SKIN: Warm, dry, no rash. NEURO: No focal deficits. Alert and oriented x3. PSYCH: Normal mood and affect PELVIC: Normal external genitalia. No concerning amount of bleeding noted. Small amount of tissue passed onto her pad Course Consultations Consultation #1: Spoke with Dr. Gonzalez about patient and workup who will follow up in clinic Date: 02/24/22 Time: 23:38 Vital Signs Vital signs: Vital Signs Temperature 98.0 F 02/24/22 21:34 Pulse Rate 94 02/24/22 21:34 Respiratory Rate 18 02/24/22 21:34 Blood Pressure 128/82 02/24/22 21:34 Pulse Oximetry 100 02/24/22 21:34 Oxygen Delivery Room Air 02/24/22 21:34 Temperature 98.0 F 02/24/22 21:34 Pulse Rate 100 02/24/22 23:19 Respiratory Rate 18 02/24/22 21:34 Blood Pressure 108/77 02/24/22 23:19 Pulse Oximetry 100 02/24/22 21:34 Oxygen Delivery Room Air 02/24/22 21:34 MDM - Female Genitourinary MDM Narrative Medical decision making narrative: Patient presents to the emergency department after passing some tissue tonight. Recently had a vaginal delivery 4 days ago. She is afebrile and nontoxic-appearing. Her vitals are stable. CBC with leukocytosis to 15.4. Also shows normocytic anemia with hemoglobin of 11.1, which is up from discharge. Metabolic panel without concerning findings. Abdominal exam is benign. Pelvic exam without concerning amount of bleeding noted. Spoke with Dr. Gonzalez about patient and workup who will follow up in clinic. Patient is stable and felt appropriate for further outpatient evaluation. She was given warnings to return to the ER Lab Data Attestation: I
[2022-02-24 23:17] VITALS: BP 104/69; PULSE 71
[2022-02-24 23:18] VITALS: BP 103/77; PULSE 88
[2022-02-24 23:19] VITALS: BP 108/77; PULSE 100
== END 2022-02-24 23:58 | disposition home or self-care (01) ==
PROVIDERS: Physician Assistant; Emergency Provider General Practice; PCP Obstetrics & Gynecology
DX: O72.2 Delayed and secondary postpartum hemorrhage (principal); O99.345 Other mental disorders complicating the puerperium; F41.9 Anxiety disorder, unspecified; F32.A Depression, unspecified; Z87.891 Personal history of nicotine dependence
CPT/HCPCS: 36415; 80053; 85025; 85610; 85730; 86850; 86900; 86901; 99283